=== PATIENT | female | born 1980 ===

== ENCOUNTER 2018-06-24 17:19 | Inpatient (IN) | payer BC, OTHER ==
[~2018-06-24] VITALS: Ht 160 cm; Wt 97.5 kg
--- NOTE | 2018-06-24 19:00 | NUR ---
PREADMISSION Pt 37 y/o female received in intake. Pt states came from [facility]. Pt is not intoxicated. Alert and oriented to name, place, and time. Perrla. Skin warm and moist to touch. Respirations even and unlabored. Bilateral hand tremors noted. Guarded. Observed staring at the ground mostly during assessment. C/o nausea with no vomit episode. C/o generalized body aches /. Pressured speech. Could not sit still. Very fidgety. Initial cows=14 ciwa=12. Explained unit rules to pt with acknowledgment. T=98.0 P=78 R=17 O2=98%@RA ES=066/62.
[2018-06-24 20:00] VITALS: BP 113/64
[2018-06-24] MEDS ORDERED: LORAZEPAM 2 MG/1 ML VIAL IM PRN (20:15)
[2018-06-24] MEDS ORDERED: BUPRENORPHINE HCL 2 MG TAB.SUBL SL PRN (20:15)
[2018-06-24] MEDS ORDERED: MAGNESIUM HYDROXIDE 30 ML LIQUID UDC PO PRN (20:15)
[2018-06-24] MEDS ORDERED: MAG HYDROX/AL HYDROX/SIMETH 30 ML LIQUID UDC PO PRN (20:15)
[2018-06-24] MEDS ORDERED: THIAMINE HCL 200 MG/2 ML VIAL IM ONE (20:15)
[2018-06-24] MEDS ORDERED: LOPERAMIDE HCL 2 MG CAPSULE PO PRN ×2 (20:15)
[2018-06-24] MEDS ORDERED: LORAZEPAM 1 MG TABLET PO PRN (20:15)
[2018-06-24] MEDS ORDERED: MIRALAX 17 GM POWD.PACK PO PRN (20:15)
[2018-06-24 20:31] LABS: BASOPHILS % (AUTO) 0.6 % (0.0-2.0); EOSINOPHILS # (AUTO) 0.2 K/uL (0.0-0.7); EOSINOPHILS % (AUTO) 1.9 % (0.0-7.0); HEMATOCRIT 37.7 % (31.2-41.9); HEMOGLOBIN 12.4 g/dL (10.9-14.3); LYMPHOCYTES # (AUTO) 3.9 K/uL (20.0-40.0); LYMPHOCYTES % (AUTO) 43.9 % (20.5-51.5); MEAN CORPUSCULAR HEMOGLOBIN 27.3 uug (24.7-32.8); MEAN CORPUSCULAR HGB CONC 33 g/dL (32.3-35.6); MONOCYTES # (AUTO) 0.7 K/uL (2.0-10.0); MONOCYTES % (AUTO) 7.9 % (0.0-11.0); NEUTROPHILS % (AUTO) 45.7 % (38.5-71.5); PLATELET COUNT (AUTO) 333 K/uL (179-408); RED BLOOD CELL COUNT(AUTO) 4.54 MIL/uL (3.63-4.92); WHITE BLOOD COUNT (AUTO) 8.8 K/uL (3.8-11.8)
[2018-06-24 20:35] LABS: ALANINE AMINOTRANSFERASE 43 U/L (14-59); ALKALINE PHOSPHATASE 120 U/L (50-136); AMYLASE 16 U/L (25-115); ASPARTATE AMINOTRANSFERASE 21 U/L (15-37); BILIRUBIN,TOTAL 0.2 mg/dL (0.2-1.0); CARBON DIOXIDE 24 mmol/L (21-32); CHLORIDE 107 mmol/L (98-107); CREATININE 0.9 mg/dL (0.6-1.3); GLUCOSE 122 mg/dL (74-106); LIPASE 66 U/L (73-393); MAGNESIUM 1.9 mg/dL (1.8-2.4); POTASSIUM 3.8 mmol/L (3.5-5.1); TOTAL PROTEIN, SERUM 7.3 g/dL (6.4-8.2); UREA NITROGEN, BLOOD 13 mg/dL (7-18)
[2018-06-24 20:42] LABS: ETHANOL < 3 MG/DL (0-0)
[2018-06-24 20:45] LABS: *URINE HCG, QUAL NEGATIVE (NEGATIVE)
--- NOTE | 2018-06-24 21:00 | NUR ---
ADMISSION NOTE Patient is a 37-year-old female admitted today 06/24/18 for medically supervised benzodiazepine (Xanax), ETOH (vodka & wine), and opiate (heroin) withdrawal; patient arrived on the unit at 1940. Patient was seen at intake by Familia Andujar RN, who performed a brief initial assessment and wrote the pre-admission note. Patient is currently experiencing the following withdrawal symptoms: anxiety, nausea, tremors, joint pain and body aches, chills and diaphoresis, tingling of her hands, arms, and legs, as well as the sensation of ants crawling all over me. Patient is alert and oriented x4, able to answer questions and follow commands. Patient appears disheveled and tired, anxious, worried, fearful, sad and depressed. Patient is ambulatory with a steady gait. Patient reports that common withdrawal symptoms include: "runny nose, body aches and joint aches, shaking, nausea and dry heaves, chills and sweats, decreased appetite, hot flashes, anxiety, restlessness, agitation." Patient states that due to having been diagnosed with epilepsy at age 16, she is not certain about having experience withdrawal-related seizures. She has been taking Topamax 50mg PO daily since onset of epilepsy, with her most recent seizure in January of 2018. Patient states she is uncertain if the seizure in January was related to ETOH withdrawal or her epilepsy. Patient denies any episodes of delirium but states that she had once instance of near overdose in 2011. Patient states that she was in [place] when she used heroin and spice together, resulting in shallow respirations and excessive vomiting. Patient states that Narcan was not necessary at that time. Patient reports several occasions where she would use and get high and experience blackouts and become forgetful. Per patient, none of her negative experiences required emergency interventions. Patient reports that her specific triggers include intense cravings that the she feels overcome by. Patient tearfully states, even right now Im craving so bad, I really want to use. Its so hard. Patient is tearful and depressed stating, Im so ashamed of myself. Even when I was getting treated at the [facility] I was sneaking things in. Skin and body check completed, no contraband found. Substance Abuse History: 1. Xanax 8-10mg PO every other day for the past 20 years. Patients last use was 06/24/18 at 0500 of 4mg. 2. Vodka 325mL PO daily (when available) for the past 6 years. Patients last intake of vodka was 06/22/18 at 0800 of 325mL. 3. Wine Patient reports drinking wine when nothing else is available. Occasional use of 750mL PO for the past 8 years. Patients last intake of wine was 06/23/18 at 0800 of 750mL. 4. Heroin 2-3 grams IV daily for that past 9 months. Last use was 06/20/18 in the afternoon of 1 gram. Patient started using heroin when she was [id number]. Patient has a history of Fentanyl use (IV, chew, & topical) for 10 years, however, due to financial strain, patient stopped using Fentanyl in September 2017 and switched back to IV heroin. Patient was recently at a treatment center where she was given Valium and Suboxone for approximately 3 days. Patient also smokes marijuana a couple times a week, each time smoking about one joint. Patient started using marijuana at age 18 and has been smoking cigarettes since the same time. Patient currently smokes about a pack a day. Patient states that she was encouraged to seek treatment today by, The fact that I want to keep pushing forward, I want to get better. When asked if she had an internal motivator, patient stated, My family and my dog; I have been very successful in the past. Patient feels that since she was able to achieve sobriety before, she will be able to achieve sobriety again. Her support system includes her parents and her cousins. When asked how she thought this admission might be different, patient answered, "I want to try talking to a new therapist for counseling. I've never had a therapist before. I think it will help." Patient reports struggling with insomnia, related to PTSD and the trauma of losing my fianc in a car accident in 2008. Patient states, I fall asleep okay, but its staying asleep thats hard. I have terrible night terrors that wake me up. Patient states that she used to take Prazosin for the night terrors, but started taking Ambien which she felt was more effective and eventually stopped taking the Prazosin on her own. Current living situation: "I was in sober living, but I also have a home in [place]." Patient states that she deals with stress by reading magazines, especially tabloids, and I like to do art. I even brought some supplies with me. Currently, patient does not hold a job but reports, I am 29 units shy of my bachelor's degree. I want to go back to school after this, for business." Patient reports attending several treatment centers over the past 7 months. In order starting with most recent: 1.) [facility], 1.[facility] days, June 22 & 2017, 2[facility] 3[facility], 2 weeks, 4.) [facility], 2 months (April-May,), 5.) [facility] [place], 25 days (December,). Prior to this year, patient states that she has been to 6 previous treatment centers. Patients longest period of sobriety was in 2015 for 10 months. When asked about family history of substance abuse, patient stated, "my dad is an alcoholic but no one else in my family has substance problems." Patient denies a history of SI/HI and denies current SI/HI. Patient states that she does not have a primary care physician, a psychologist or a psychiatrist. Patient reports that she is an organ donor, she has been attending AA meetings, and she has a temporary sponsor. Patient states that her past medical history includes anxiety, asthma, insomnia, PTSD, endometriosis, GERD, IBS, hypothyroidism, and epilepsy. She takes Topamax daily, along with levothyroxine, her maintenance inhaler (Advair), and pantoprazole. Patient is 54 and weighs 215lbs. per standing scale. Patients initial vital signs as follows: Temp: 98.0 F, HR 78, RR 17, O2 sat is 98% on RA, BP 103/62, pain 8/10 for generalized body aches and joint pain. Patients skin is intact, PERRLA, lung sounds clear bilaterally upon auscultation, abdomen soft and non-tender, bowel sounds present x4 quadrants. Patient states that her LMP was about 4 months ago although she denies using any form of control that might affect her menstruation. Patient states that her last BM was yesterday, 06/23/18. Initial COWS 14, CIWA 12. Patient has been oriented to the unit and has been provided with unit policies and protocols. Patient verbalized understanding to instructions. Patient is on fall and seizure precautions, safety measures in place, side rails up x2, bed locked in low position, call light within reach. SN to administer medications as ordered; will continue to monitor.
[2018-06-24 21:03] LABS: THYROID STIMULATING HORMONE 1.079 mIU/mL (0.358-3.740)
[2018-06-24 21:12] LABS: *AMPHETAMINE, URINE NEGATIVE (NEGATIVE); *BARBITURATE, URINE NEGATIVE (NEGATIVE); *CANNABINOID, URINE NEGATIVE (NEGATIVE); *COCCAINE, URINE NEGATIVE (NEGATIVE); *OPIATE, URINE NEGATIVE (NEGATIVE); *PHENCYCLIDINE SCREEN,URINE NEGATIVE (NEGATIVE)
[2018-06-24] MEDS ORDERED: FLUT1DIS28 IH (21:40)
[2018-06-24] MEDS ORDERED: TRAZ-214 PO (21:40)
[2018-06-24] MEDS ORDERED: FLUO15CR TP (21:40)
[2018-06-24] MEDS ORDERED: BACI3.5O23 OP (21:40)
[2018-06-24] MEDS ORDERED: FLUO40CA49 PO (21:40)
[2018-06-24] MEDS ORDERED: PANT40TA4 PO (21:40)
[2018-06-24] MEDS ORDERED: ZINC220C8 PO (21:40)
[2018-06-24] MEDS ORDERED: CLON0.1T PO (21:40)
[2018-06-24] MEDS ORDERED: DIPH-562 PO (21:40)
[2018-06-24] MEDS ORDERED: PROM25TA15 PO (21:40)
[2018-06-24] MEDS ORDERED: DOCU-141 PO (21:40)
[2018-06-24] MEDS ORDERED: MONT10TA25 PO (21:40)
[2018-06-24] MEDS ORDERED: LEVO50TA8 PO (21:40)
[2018-06-24] MEDS ORDERED: FLUT9.9S NS (21:40)
[2018-06-24] MEDS ORDERED: DIPH28.33 TP (21:40)
[2018-06-24] MEDS ORDERED: TOPI50TA24 PO (21:40)
[2018-06-24] MEDS ORDERED: ALBU18HF2 IH (21:40)
[2018-06-24] MEDS ORDERED: GABA600T2 PO (21:40)
[2018-06-24] MEDS ORDERED: [UNRECOGNIZED DRUG - CODE] PO (21:40)
[2018-06-24] MEDS ORDERED: DEXT15DR6 OP (21:40)
[2018-06-24] MEDS ORDERED: BUSP10TA3 PO (21:40)
--- NOTE | 2018-06-24 22:00 | NUR ---
COWS 18, CIWA 22 Patient currently has a COWS score of 18 and a CIWA of 22. Patient reports nausea, anxiety, agitation, "tingling" and "skin crawling" describing sensations of "ants crawling all over my body and stinging me." SN to administer medications as ordered. Will continue to monitor.
[2018-06-24] MEDS: LORAZEPAM 1 MG TABLET PO PRN (22:07)
[2018-06-24] MEDS: PROMETHAZINE HCL 25 MG TABLET PO PRN (22:07)
--- NOTE | 2018-06-24 22:07 | NUR ---
PRN ATIVAN, SUBUTEX, & PHENERGAN Patient given PRN Ativan 2mg for CIWA of 22 and PRN Subutex 4mg SL for COWS of 18. Patient given PRN Phenergan 25mg for nausea. Safety measures in place, side rails up x2, bed locked in low position, call light within reach. Will monitor for effectiveness.
--- NOTE | 2018-06-24 22:37 | NUR ---
PRN SUBUTEX REASSESSMENT Upon reassessment, patient has a COWS score of 15 (previously 16). PRN Subutex mildly effective. Safety measures in place, side rails up x2, bed locked in low position, call light within reach. Will continue to monitor.
--- NOTE | 2018-06-24 23:07 | NUR ---
PRN ATIVAN & PHENERGAN REASSESSMENT Patient reports nausea has improved. PRN Phenergan noted to be effective. Upon reassessment, patient has a CIWA score of 20 (previously 22). PRN Ativan noted to be mildly effective. Safety measures in place, side rails up x2, bed locked in low position, call light within reach. Will continue to monitor.
[2018-06-25] VITALS (7 sets, daily range): BP systolic 49–122; BP diastolic 48–80
--- NOTE | 2018-06-25 | NUR ---
COWS 16, CIWA 20 Patient has a current COWS of 16 and a current CIWA of 20. Scores reflect intermittent nausea, anxiety, agitation, chills and sweats, "skin crawling," and headache. SN to administer medications as ordered. Will continue to monitor.
[2018-06-25] MEDS: LORAZEPAM 1 MG TABLET PO PRN (00:17)
[2018-06-25] MEDS: diphenhydrAMINE 50 MG CAPSULE PO PRN (00:17)
--- NOTE | 2018-06-25 00:17 | NUR ---
PRN ATIVAN & BENADRYL Patient reports difficulty sleeping and is requesting sleep aid. PRN Benadryl 50mg given PO. Per PRN Ativan order of CIWA greater or equal to 16, patient was given Ativan 2mg PO. Safety measures in place, side rails up x2, bed locked in low position, call light within reach. Will monitor for effectiveness.
[2018-06-25] MEDS: IBUPROFEN 600 MG TABLET PO PRN (00:20)
--- NOTE | 2018-06-25 00:20 | NUR ---
PRN MOTRIN Patient reports headache, 5/10 on pain scale. PRN Motrin 600mg given PO. Safety measures in place, call light within reach. Will monitor for effectiveness.
--- NOTE | 2018-06-25 01:17 | NUR ---
PRN ATIVAN & BENADRYL REASSESSMENT Patient has a current CIWA of 17; PRN Ativan noted to be effective. Patient reports feeling only a little sleepy; PRN Benadryl only mildly effective at this time. Safety measures in place, side rails up x2, bed locked in low position, call light within reach. Will continue to monitor.
--- NOTE | 2018-06-25 01:20 | NUR ---
PRN MOTRIN REASSESSMENT Patient reports that headache has improved; PRN Motrin noted to be effective. Safety measures in place, call light within reach. Will continue to monitor.
[2018-06-25] MEDS ORDERED: [UNRECOGNIZED DRUG - OTHER] (03:52)
[2018-06-25] MEDS ORDERED: NAPH15DR8 OP (03:52)
--- NOTE | 2018-06-25 04:00 | NUR ---
COWS & CIWA DEFERRED COWS and CIWA deferred at this time due to patient sleeping; to be assessed and scored while patient is awake, per protocol. Respirations are even and unlabored. Safety measures in place, side rails up x2, bed locked in low position, call light within reach. Will continue to monitor.
[2018-06-25] MEDS: PROMETHAZINE HCL 25 MG TABLET PO PRN ×3 (07:08→20:24)
--- NOTE | 2018-06-25 07:08 | NUR ---
PRN PHENERGAN Patient reports nausea. PRN Phenergan given PO. Safety measures in place, side rails up x2, bed locked in low position, call light within reach. Will endorse to day shift.
--- NOTE | 2018-06-25 07:25 | NUR ---
END OF SHIFT Patient is a 37-year-old female admitted yesterday, 06/24/18 for benzo, ETOH, and opiate withdrawal. Patient is scheduled to start a 5-day Phenobarbital taper and 5-day Subutex taper today. Patients last COWS was 16 and last CIWA was 17. Patient received the following PRN medications: Ativan 2mg PO x2, Subutex 4mg SL, Phenergan 25mg PO, Benadryl 50mg, and Motrin 600mg. The PRN medications were noted to be effective in reducing patients COWS and CIWA scores. Patient slept for 5 hours, total intake of 1,210mL, void x1, stool x0. Another PRN Phenergan 25mg was given at 0708 for complaint of nausea, no emesis. Patient is on fall and seizure precautions, with seizure history related to epilepsy, most recent seizure in January,. Safety measures in place, side rails up x2, bed locked in low position, call light within reach. Will endorse to day shift.
--- NOTE | 2018-06-25 07:30 | NUR ---
START OF SHIFT Pt 37 y/o female admitted for medically supervised bzo, etoh, and opiate withdrawal. Received in room on bed with eyes closed resting, but easily arousable to name. Perrla. Skin warm and moist to touch. Respirations even and unlabored. Bilateral hand tremors noted. Appears disheveled and unkempt. Hair uncombed. States is anxious. Fidgety. Complaints of "skin crawling". Complaints of chills/ sweats. Body aches. Generalized discomfort. Encouraged to maintain hygiene. Empty drink bottles scattered throughout the room. I was reported that pt slept for 5 hours last night. Last cows=16 ciwa=17 reported at 1999. Pt is on a 5 day subutex taper and 5 day phenobarbital taper and is on day 1 for both tapers. Bed on lowest position with side rails x2 up for safety. Call light within reach.
--- NOTE | 2018-06-25 08:00 | NUR ---
COWS AND CIWA ASSESSMENT cows=14 ciwa=14. Anxious. Irritable. Complaints of nausea with no vomit episode. Bilateral hand tremors noted. Complaints of intermittent chills/ sweats. Complaints of generalized body aches. Complaints of generalized discomfort.
[2018-06-25] MEDS: MULTIVITAMINS,THERAPEUTIC TABLET PO SCH (09:00)
[2018-06-25] MEDS: THIAMINE HCL 100 MG TABLET PO SCH (09:00)
[2018-06-25] MEDS ORDERED: TUBERCULIN,PURIF.PROT.DERIV. 5 TU/0.1 ML TEST ID ONE (09:00)
[2018-06-25] MEDS ORDERED: 5 DAY TAPER BUPRENORPHINE -SERENITY PROTOCOL SL PRN (09:00)
[2018-06-25] MEDS ORDERED: 6 DAY PHENOBARBITAL TAPER -SERENITY PROTOCOL PO PRN (09:00)
[2018-06-25] MEDS: PHENOBARBITAL 60 MG TABLET PO SCH ×3 (10:12→20:24)
[2018-06-25] MEDS: FOLIC ACID 1 MG TABLET PO SCH (10:12)
[2018-06-25] MEDS: BUPRENORPHINE HCL 2 MG TAB.SUBL SL SCH ×4 (10:13→20:23)
[2018-06-25] MEDS ORDERED: MONTELUKAST SODIUM 10 MG TABLET PO PRN (10:45)
[2018-06-25] MEDS ORDERED: ALBUTEROL SULFATE 8 GM HFA.AER.AD IH PRN (10:45)
[2018-06-25] MEDS: DICYCLOMINE HCL 20 MG TABLET PO PRN ×2 (11:35→20:23)
--- NOTE | 2018-06-25 11:40 | NUR ---
PHENARGAN MAALOX BENTYL PRN Unwitnessed vomit episode x1. Observed dry heaving. phenergan po prn per MD order given and tolerated well. Complaints of stomach cramps. Bnetyl po prn per MD order given and tolerated well. Complaints of heart burn. Maloox po prn prn per MD order given and tolerated well.
[2018-06-25] MEDS ORDERED: ALBUTEROL SULFATE 2.5 MG/3 ML NEBU NEB PRN (11:45)
--- NOTE | 2018-06-25 12:00 | NUR ---
COWS ASSESSMENT cows=15. Bilateral hand tremors noted. Anxious and restless .Not able to lay still. Pressured speech. Complaints of nausea/ vomit. Complaints of generalized body pain. Generalize discomfort. Addendum: 06/25/18 at 1725 by SUZANNA ROMERO RN additional info and ciwa=15
--- NOTE | 2018-06-25 12:40 | NUR ---
PRN PHENERGAN MALOOX BENTYL PRN Pt denies nausea or vomit at this time. Pt denies stomach cramps at this time. Pt denies heartbur at this time.
[2018-06-25] MEDS: FLUOXETINE HCL 20 MG CAPSULE PO SCH (13:02)
--- NOTE | 2018-06-25 16:00 | NUR ---
COWS AND CIWA ASSESSMENT cows=13 ciwa=13. Bilateral hand tremors noted. Anxious and restless. Irritable. Pressured speech. Complaints of chills/ sweats, body aches, nausea, and generalized discomfort.
[2018-06-25] MEDS: HYDROXYZINE PAMOATE 25 MG CAPSULE PO PRN (16:05)
[2018-06-25] MEDS: PANTOPRAZOLE SODIUM 40 MG TABLET.DR PO SCH (16:05)
--- NOTE | 2018-06-25 16:11 | NUR ---
PRN VISTARIL Tearful and crying. Vistaril po prn per MD order given and tolerated well.
--- NOTE | 2018-06-25 17:11 | NUR ---
PRN VISTARIL EVAL pt states vistaril effective.
--- NOTE | 2018-06-25 18:48 | NUR ---
END OF SHIFT Pt 37 y/o female admitted for medically supervised bzo, etoh, and opiate withdrawal. Alert and oriented to name, place, and time. Perrla. Skin warm and moist to touch. Respirations even and unlabored. Bilateral hand tremors noted. Appears disheveled and unkempt. Hair uncombed. Irritable. Anxious. Complaints of body aches and nausea throughout the day. Pressured speech noted. Clothes and empty drink bottles scattered throughout the room. Encouraged to maintain hygiene. Isolative to room throughout the day with minimal peer interaction. Low motivation for self care. Was seen by MD today. Medication compliant. Pt is on a 5 day Phenobarbital taper and is on day 1. Pt also on a 5 day subutex taper and is on day 1. Last cows= 13ciwa= 13@1600. Pt received bentyl po prn per MD order for stomach cramps, maloox po prn per MD order for heartburn, and Phenergan po prn per MD order for nausea and 1 vomit episode today. Bed on lowest position with side rails x2. Call light within reach.
--- NOTE | 2018-06-25 19:50 | NUR ---
Start of Shift Note Received 37 y/o female px, admitted for medically supervised withdrawal from ETOH, benzos and opiates. Px was placed on 5 day Phenobarbital and 5 day Subutex taper started today, 06/25/2018. Last reported COWS 13 and CIWA 13. During the rounds at 1950, px is awake on bed in fowlers position, watching TV. Snacks and unfinished drinks noted on top of the bed side table and top of the shelves. Px appears anxious and depressed. Px is suspicious, with blunt affect and emotional volatility. Px stated that she has 7/10 anxiety, 7/10 body aches, pins/needles sensation on right leg and arms, flush feeling, stuffy nose, stomach cramps, nausea and moderate bilateral hand tremors are also noted. Bed on lowest position, side rails up 2x and call light within reach. Well continue to monitor.
--- NOTE | 2018-06-25 20:00 | NUR ---
COWS 13 and CIWA 15 Px appears anxious and depressed. Px is suspicious, with blunt affect and emotional volatility. Px has 7/10 anxiety, 7/10 body aches, pins/needles sensation on right leg and arms, flush feeling, stuffy nose, stomach cramps, nausea and moderate bilateral hand tremors are also noted. IL= 66. Well continue to monitor.
[2018-06-25] MEDS: TRAZODONE 100 MG TABLET PO SCH (20:23)
[2018-06-25] MEDS: TOPIRAMATE 25 MG TABLET PO SCH (20:24)
--- NOTE | 2018-06-25 20:24 | NUR ---
PRN medications Px received Bentyl 20 mg PO for stomach cramps and Phenergan 25 mg PO for nausea. To reassess after an hour.
--- NOTE | 2018-06-25 20:55 | NUR ---
COWS 13 reassessment Px still appears anxious and depressed. Px is suspicious, with blunt affect and emotional volatility. Px stated that she feels the same, she has 7/10 anxiety, 7/10 body aches, pins/needles sensation on right leg and arms, flush feeling, stuffy nose, stomach cramps, moderate bilateral hand tremors are also noted. She was given Phenergan 25 mg Po and Bentyl 20 mg PO a while ago. DC= 69. Well continue to monitor.
--- NOTE | 2018-06-25 21:25 | NUR ---
Reassessment of stomach cramps and nausea Px stated that her stomach cramps improves and her nausea improved a little after an hour of administration of Bentyl 20 mg PO and Phenergan 25 mg PO.
--- NOTE | 2018-06-25 21:25 | NUR ---
CIWA 15 reassessment Px still appears anxious and depressed. Px is suspicious, with blunt affect and emotional volatility. Px stated that she still feels the same even her stomach cramps and nausea improved a little bit. She has 7/10 anxiety, 7/10 body aches, pins/needles sensation on right leg and arms, flush feeling, stuffy nose, and moderate bilateral hand tremors are also noted. CO= 64. Well continue to monitor.
[2018-06-26] VITALS (8 sets, daily range): BP systolic 86–151; BP diastolic 42–79
--- NOTE | 2018-06-26 04:00 | NUR ---
COWS and CIWA deferred COWS and CIWA deferred at 0000 and 0400 due to the px is asleep, to assess if the px is awake per doctor's order. We'll continue to monitor.
[2018-06-26] MEDS: LEVOTHYROXINE SODIUM 50 MCG TABLET PO SCH (07:01)
--- NOTE | 2018-06-26 07:05 | NUR ---
End of Shift Note During the shift at 2023, px received Bentyl 20 mg PO for stomach cramps and Phenergan 25 mg PO for nausea. They were a bit effective as stated by the px. Px oral intake 1500 ml, voided 3x, No BM. At 0630, px is asleep on bed in right side lying position. Last COWS 13 and CIWA 15. Bed on lowest position, side rails up 2x and call light within reach. Px endorsed top AM shift nurse. Well continue to monitor.
--- NOTE | 2018-06-26 07:20 | NUR ---
Start Of Shift: patient is a 37 yr old female who was admitted to [facility] on 06/24/18 for a medically supervised withdrawal from Alcohol ( Wine, and Vodka), Benzodiazepines ( Xanax) and Opiates ( Fentanyl, heroin and Suboxone), she has been placed on a 5 day Subutex and 5 day Phenobarbital taper and this is day 2. She is asleep in bed at this time, breathing even and unlabored and snoring lightly. PRN medications given on PM shift: Bentyl and Phenergan , she slept for 8 hours and last COWS was 13 and CIWA 15. Continue to follow MD plan of care and offer support as needed.
--- NOTE | 2018-06-26 09:00 | NUR ---
PRN Phenergan 25 MG PO given for nausea Bentyl 20 MG PO given for stomach spasms
--- NOTE | 2018-06-26 09:00 | NUR ---
COWS 12 CIWA 15 Withdrawal symptoms present as stuffy nose, nausea, lethargy, stomach pains, bilateral hand tremors, increased anxiety and irritability. Phenergan 25 MG PO given for nausea Bentyl 20 MG PO given for stomach spasms scheduled 30 MG Po Phenobarbital and Subutex 4 MG SL given.
[2018-06-26] MEDS: FLUOXETINE HCL 20 MG CAPSULE PO SCH (09:17)
[2018-06-26] MEDS: MULTIVITAMINS,THERAPEUTIC TABLET PO SCH (09:17)
[2018-06-26] MEDS: FOLIC ACID 1 MG TABLET PO SCH (09:17)
[2018-06-26] MEDS: THIAMINE HCL 100 MG TABLET PO SCH (09:17)
[2018-06-26] MEDS: PANTOPRAZOLE SODIUM 40 MG TABLET.DR PO SCH ×2 (09:17→16:29)
[2018-06-26] MEDS: TOPIRAMATE 25 MG TABLET PO SCH ×2 (09:17→21:19)
[2018-06-26] MEDS: BUPRENORPHINE HCL 2 MG TAB.SUBL SL SCH ×3 (09:18→21:20)
[2018-06-26] MEDS: DICYCLOMINE HCL 20 MG TABLET PO PRN (09:18)
[2018-06-26] MEDS: PROMETHAZINE HCL 25 MG TABLET PO PRN ×2 (09:18→14:31)
[2018-06-26] MEDS: PHENOBARBITAL 60 MG TABLET PO SCH ×4 (09:18→21:20)
--- NOTE | 2018-06-26 10:00 | NUR ---
PRN Reassess Patient states that phenergan 25MG PO was effective for nausea and Bentyl 20 MG Po was effective for stomach spasms Patient is sitting up in bed eating breakfast
[2018-06-26 11:06] LABS: HEPATITIS B SURFACE AG Negative (Negative)
--- NOTE | 2018-06-26 12:30 | NUR ---
COWS 16 CIWA 21 Patient presents with chills/diaphoresis, increased anxiety, irritability, emotionally volatile, mood swings, aching bones, constant nausea, constipation and stomach spasms. Scheduled 30 MG PO Pheno given PRN Clonidine, Vistaril, Tylenol, Motrin, Robaxin and MOM given
[2018-06-26] MEDS: ACETAMINOPHEN 325 MG TABLET PO PRN (12:49)
[2018-06-26] MEDS: METHOCARBAMOL 750 MG TABLET PO PRN (12:49)
[2018-06-26] MEDS: IBUPROFEN 600 MG TABLET PO PRN (12:49)
[2018-06-26] MEDS: HYDROXYZINE PAMOATE 25 MG CAPSULE PO PRN (12:49)
[2018-06-26] MEDS: CLONIDINE HCL 0.1 MG TABLET PO PRN (12:50)
--- NOTE | 2018-06-26 12:50 | NUR ---
PRN medications Motrin 600MG PO and Tylenol 650 MG PO given for toothache / pain MOM given for C/O no BMx5 days Clonidine 0.1 MG PO and Vistaril 25 MG PO given for increased anxiety and irritability Robaxin 750 MG PO given for C/O body aches Patient is weepy and has a sad flat affect, will monitor closely and offer support
--- NOTE | 2018-06-26 13:50 | NUR ---
PRN Reassess Patient states medications were effective, tooth pain reduced to 2/10 Anxiety has decreased and muscle aches have decreased will continue to monitor
--- NOTE | 2018-06-26 14:30 | NUR ---
PRN Phenergan Phenergan 25 MG PO given for reports of nausea Will continue to monitor
--- NOTE | 2018-06-26 16:30 | NUR ---
COWS 14 CIWA 18 withdrawal symptoms present as pins and needles in hands and feet, feeling of ants crawling over skin, increased anxiety, emotionally volatile, tearful,lethargy and decreased appetite and nausea. PRN medications given this afternoon: Clonidine, Vistaril, Motrin, Tylenol, Robaxin, MOM and Phenergan.
--- NOTE | 2018-06-26 17:55 | NUR ---
Assisted Fall Patient came to nurses station after having a long shower, as nurse approached she stated " I don't feel well ", patients legs began to bend and this nurse assisted patient to sit on floor, patient was hyperventilating and shaking, after 5 mins patient was helped into wheelchair and placed back in bed, VS taken BP 151/75, HR 94, RR 24, O2 98 %, T 98.5 Patient states she feels like she is having a panic attack, MD notified and orders for Ativan 2 MG PO obtained. Will continue to monitor closely, 1:[address] at bedside for patient safety.
[2018-06-26] MEDS ORDERED: LORAZEPAM 1 MG TABLET PO ONE (18:15)
--- NOTE | 2018-06-26 19:14 | NUR ---
End Of Shift: Patient is a 37 yr old female who was admitted to [facility] on 06/24/18 for a medically supervised withdrawal from ETOH, benzodiazepines, and Opiates. She is on a 5 day Phenobarbital and 5 day Subutex taper and this is day 2. Today she has been emotionally volatile, weepy, lethargic, nauseous, complains of pins and needles in hands and feet, feeling of bugs crawling over her skin, decreased appetite, increased anxiety and agitation. She had an episode at 1755 after coming out of shower where she felt faint while talking to this nurse, her knees buckled and I assisted her to sitting on floor, she was hyperventilating and shaking, after a few minutes she was wheeled back to bed, VS stable, order from MD for Ativan 2MG PO x1. PRN medications given this shift : Ativan 2MG, Bentyl, Phenergan x2, Clonidine, Robaxin, Vistaril, Motrin and Tylenol. She had a fluid intake of 1800 ML, 3 Voids and 0 BM, her last COWS was 14 @ 1600 and CIWA 20 @ 1800. Patient has confided twice today that her cravings are so bad and she really wants to use and she thinks that is why she had a near panic attack at 1800. Reassured patient that she is safe here and that sobriety is worth it. Continue to follow MD plan of care and offer support as needed. Endorsed to restaurant shift supervisor
--- NOTE | 2018-06-26 19:30 | NUR ---
START OF SHIFT Pt is a 37 yr old female who was admitted for a medically supervised withdrawal from ETOH, benzodiazepines, and Opiates.Pt continues on a 5 day Phenobarbital and 5 day Subutex taper and is tolerating well. Per endorsement, Pt had an episode at 1755 after coming out of shower where she felt faint and was assisted to sitting on floor, she was hyperventilating and shaking, after a few minutes she was wheeled back to bed, VS stable. One time dose for Ativan 2MG PO was given and was effective. PRN medications given during the day shift : Ativan 2MG, Bentyl, Phenergan x2, Clonidine, Robaxin, Vistaril, Motrin and Tylenol. Last COWS 14 @ 1600 and CIWA 20 @ 1800.Pt has been placed on 1:1 close observation with a female staff for safety. Received in room. A/A/O X 4. Pt stated that she is feeling better now; encouraged to verbalize needs and concerns; emotional support provided.Denies any c/o pain or discomfort, focused on going to smoke.Pt encouraged to use wheel chair for safety. Safety measures in place. Call light within reach. Will continue to monitor.
--- NOTE | 2018-06-26 20:00 | NUR ---
COWS 10 CIWA 10 Pt is resting comfortably in bed,minimizing withdrawal symptoms, presents with increased anxiety, emotionally unstable,lethargic with decreased appetite,no c/o nausea noted.PRN medications offered but she declined,stated she will take routine meds at bed time.
[2018-06-26] MEDS: TRAZODONE 100 MG TABLET PO SCH (21:19)
[2018-06-27] VITALS: BP 123/76
--- NOTE | 2018-06-27 | NUR ---
COWS 10 CIWA 10 Pt is anxious,restless,lethargic,sleeping on and off,unable to sleep comfortably,constantly turning in bed.PRN medications offered but she declined; stated she will try to sleep;will continue to monitor.
[2018-06-27] MEDS: diphenhydrAMINE 50 MG CAPSULE PO PRN ×2 (00:42→23:07)
[2018-06-27] MEDS: IBUPROFEN 600 MG TABLET PO PRN ×2 (00:42→23:07)
[2018-06-27] MEDS: METHOCARBAMOL 750 MG TABLET PO PRN (00:42)
--- NOTE | 2018-06-27 00:42 | NUR ---
PRN MEDS Pt c/o headache,muscle aches/pain and insomnia.PRN Motrin 600mg PO,Robaxin 750 mg PO and Benadryl 50 mg PO given as oredered respectively;will monitor for effectiveness.
[2018-06-27 04:00] VITALS: BP 121/69
--- NOTE | 2018-06-27 04:00 | NUR ---
COWS and CIWA deferred COWS and CIWA deferred due to pt being asleep;pt is sleeping in bed,breathing is even and non labored,v/s are stable, no s/s of distress noted,will continue to monitor.
--- NOTE | 2018-06-27 06:47 | NUR ---
END OF SHIFT Pt is a 37 yr old female who was admitted for a medically supervised withdrawal from ETOH, benzodiazepines, and Opiates.Pt continues on a 5 day Phenobarbital and 5 day Subutex taper and is tolerating well. Pt has been placed on 1:1 close observation with a female staff for safety due to an episode of fainting yesterday. No further incident noted. Pt is A/O X 4. Last COWS / CIWA = 10 as of midnight. Pt received PRN Motrin,Robaxin and Benadryl last night and it was effective.She slept 6 hrs,fluid intake was 1960 mls,voided x 3, no BM. Safety measures in place. Call light within reach. Will continue to monitor.
[2018-06-27] MEDS: LEVOTHYROXINE SODIUM 50 MCG TABLET PO SCH (06:54)
--- NOTE | 2018-06-27 07:30 | NUR ---
Start of Shift Notes: Report received from manager night nurse. Pt is a 37F, admitted for Benzo, ETOH, and Opiate withdrawal. Per manager night nurse, pts last COWS was 10, CIWA was 10, and pt slept for 6 hours. Pt continues on Subutex and Phenobarbital taper to manage withdrawal symptoms. Upon start of shift, pt was in bed with eyes closed. Pt being observed by 1:1 sitter for safety. Pt had a fall episode yesterday. Pt arousable to name. During assessment, Pt is AOx4. Pt stated Im okay, I just feel tired and want to go back to sleep. Educated pt about plan of care for the day. Pt agreed to go to group activity if she can during the day. Bed in lowest position. Side rails up x2. Call light functioning and within reach. All needs attended and met.
[2018-06-27 08:00] VITALS: BP 109/66
--- NOTE | 2018-06-27 08:00 | NUR ---
COWS and CIWA COWS 11 CIWA 11, pt exhibits observable sweat, aching joints, stomach cramps, slight tremors, moderate anxiety and agitation.
[2018-06-27] MEDS ORDERED: BUPRENORPHINE HCL 2 MG TAB.SUBL SL SCH (09:00)
[2018-06-27] MEDS: MULTIVITAMINS,THERAPEUTIC TABLET PO SCH (09:00)
[2018-06-27] MEDS: FOLIC ACID 1 MG TABLET PO SCH (09:36)
[2018-06-27] MEDS: TOPIRAMATE 25 MG TABLET PO SCH ×2 (09:36→21:23)
[2018-06-27] MEDS: PANTOPRAZOLE SODIUM 40 MG TABLET.DR PO SCH ×2 (09:37→17:41)
[2018-06-27] MEDS: FLUOXETINE HCL 20 MG CAPSULE PO SCH (09:37)
[2018-06-27] MEDS: PHENOBARBITAL 60 MG TABLET PO SCH ×3 (09:38→21:22)
[2018-06-27] MEDS: THIAMINE HCL 100 MG TABLET PO SCH (09:38)
[2018-06-27 12:00] VITALS: BP 109/67
--- NOTE | 2018-06-27 12:00 | NUR ---
COWS and CIWA COWS 11 CIWA 10, pt with observable sweat, stomach cramps, slight tremors, moderate anxiety and agitation.
[2018-06-27] MEDS: CLONIDINE HCL 0.1 MG TABLET PO PRN ×2 (14:53→23:08)
[2018-06-27] MEDS: BUPRENORPHINE HCL 2 MG TAB.SUBL SL SCH ×2 (14:54→21:22)
[2018-06-27] MEDS: PROMETHAZINE HCL 25 MG TABLET PO PRN ×2 (15:00→23:07)
--- NOTE | 2018-06-27 15:00 | NUR ---
Phenergan and Clonidine PRN: Pt c/o nausea. No vomiting episodes. Pt educated about snack intake. 25mg Phenergan PO PRN given as ordered. Pt also c/o anxiety. Pt stated Clonidine has worked for her anxiety previously. BP 114/67. 0.1mg Clonidine PO PRN given as ordered. Will continue to monitor.
--- NOTE | 2018-06-27 15:15 | NUR ---
MD Communication: Pt c/o tooth pain 06/17. Pt said she plans on getting a root canal for her left molar. Pt requested Toradol IM as it has worked for her before. MD made aware with new order for 30mg Toradol IM [id number]. Pt stated that she'll ask for the medication when she can't take the pain anymore or before she goes to sleep. Order noted.
[2018-06-27 16:00] VITALS: BP 105/57
--- NOTE | 2018-06-27 16:00 | NUR ---
COWS and CIWA COWS 11 CIWA 12, pt with some sweat, slight aching joints, stomach cramps, some tremors, moderate anxiety and agitation.
--- NOTE | 2018-06-27 19:36 | NUR ---
End of Shift Note: Report given to building repair maintenance supervisor nurse. Pt is currently on 1:1 for safety. Last CIWA was 12 at 1600. Pt had anxiety during shift. Clonidine PRN given as ordered. Pt also c/o tooth pain and requested for Toradol. New order for Toradol noted. Pt stated shell take Toradol before she goes to sleep. Bed in lowest position. Side rails up x2. Call light functioning and within reach. All needs attended and met.
--- NOTE | 2018-06-27 19:40 | NUR ---
START OF SHIFT Pt is a 37 yr old female who was admitted for a medically supervised withdrawal from ETOH, benzodiazepines, and Opiates.Pt continues on a 5 day Phenobarbital and 5 day Subutex taper and is tolerating well. Pt continues on 1:1 close observation with a female staff for safety. Pt received sleeping in bed in her room.Arousable on approach but went back to sleep.Pt is A/O X 4.Per report,Pt has been in bed,sleeping on and off all day long,up for smoke break only.Room is scattered with unfinished food items and soda bottles,Pt does not want it cleared up said she is going to eat.Physical appearance is dishevelled and unkempt. Pt encouraged to verbalize needs and concerns; emotional support provided.Last COWS=11 and CIWA=12. Pt received PRN Phenergan and Clonidine during the day and it was effective.No s/s of distress noted. Safety measures in place. Call light within reach. Will continue to monitor.
[2018-06-27 20:00] VITALS: BP 105/60
[2018-06-27] MEDS: TRAZODONE 100 MG TABLET PO SCH (21:22)
--- NOTE | 2018-06-27 21:30 | NUR ---
MED PASS During med pass,this freelance writer had to cut her Phenobarbital 60 mg pill in half to give her the prescribed dose of 30 mg and accidently dropped ( to be wasted ) 1/2 pill on the floor,which was going to be picked up and wasted after med pass.Pt saw that pill and got up to go to the BR,she stepped on the pill on the floor and dragged it to the bathroom with her feet.When confronted,she denied,however the pill was taken away from her and she was disciplined.
[2018-06-27] MEDS: ACETAMINOPHEN 325 MG TABLET PO PRN (23:07)
--- NOTE | 2018-06-27 23:08 | NUR ---
PRN MEDS Pt c/o having nausea and anxiety,said that she had taken Phenergan and Clonidine in the day time and it was helpful,requesting for the same.Phenergan and Clonidine given as ordered,B/P=137/75.Pt also C/O INSOMNIA AND TOOTHACHE 05/17.PRN Benadryl,Tylenol and Motrin given as ordered,respectively;will monitor for effectiveness.
[2018-06-28] VITALS: BP 135/77
--- NOTE | 2018-06-28 00:08 | NUR ---
PRN F/U; COWS/ CIWA DEFERRED Pt is calm and resting in bed with eyes closed,breathing is even and non labored,no s/s of distress noted, COWS/CIWA deferred d/t Pt being asleep,all safety measures in place,sitter is at bedside,will continue to monitor for safety.
--- NOTE | 2018-06-28 04:00 | NUR ---
COWS and CIWA deferred COWS and CIWA deferred due to pt being asleep;pt is sleeping in bed,breathing is even and non labored,v/s refused, no s/s of distress noted,will continue to monitor.
--- NOTE | 2018-06-28 06:55 | NUR ---
END OF SHIFT Pt is a 37 yr old female who was admitted for a medically supervised withdrawal from ETOH, benzodiazepines, and Opiates.Pt continues on a 5 day Phenobarbital and 5 day Subutex taper and is tolerating well. Pt continues on 1:1 close observation with a female staff for safety. No further incident noted. Pt is A/O X 4. Last COWS = 10; CIWA =12. Pt received PRN Motrin,Tylenol,Clonidine,Phenergan and Benadryl last night and were effective.She slept 9 hrs,fluid intake was 910 mls,voided x 1, no BM. Pt remains dishevelled and unkempt with poor ADL'S.Safety measures in place. Call light within reach. Will continue to monitor.
[2018-06-28] MEDS: LEVOTHYROXINE SODIUM 50 MCG TABLET PO SCH (07:19)
--- NOTE | 2018-06-28 07:40 | NUR ---
Start of Shift Pt is a 37 y/o F admittd on 06/24/18 for medically supervised ETOH, benzo and opiate withdrawal. Pt continues on a 5 day phenobarbital and subutex taper and tolerating well. Received pt laying in bed sleeping and has a disheveled appearance; 1:1 sitter at bedside for safety. Respirations even and unlabored. Multipe drink bottles and snack wrappers and clothes scattered around the room. Last cows 10 and ciwa 12; pt slept 9 hrs. Side rails upx2, bed in lowest position, and call light is within reach. Safety measures in place. Will continue to monitor.
[2018-06-28 09:55] VITALS: BP 109/68
[2018-06-28] MEDS: THIAMINE HCL 100 MG TABLET PO SCH (10:00)
[2018-06-28] MEDS: PANTOPRAZOLE SODIUM 40 MG TABLET.DR PO SCH ×2 (10:00→17:00)
[2018-06-28] MEDS: FOLIC ACID 1 MG TABLET PO SCH (10:00)
[2018-06-28] MEDS: PHENOBARBITAL 60 MG TABLET PO SCH ×2 (10:00→22:10)
[2018-06-28] MEDS: FLUOXETINE HCL 20 MG CAPSULE PO SCH (10:00)
[2018-06-28] MEDS: MULTIVITAMINS,THERAPEUTIC TABLET PO SCH (10:00)
[2018-06-28] MEDS: BUPRENORPHINE HCL 2 MG TAB.SUBL SL SCH ×3 (10:01→22:14)
[2018-06-28] MEDS: TOPIRAMATE 25 MG TABLET PO SCH ×2 (10:01→22:13)
[2018-06-28] MEDS: PROMETHAZINE HCL 25 MG TABLET PO PRN ×2 (10:21→22:13)
--- NOTE | 2018-06-28 10:21 | NUR ---
PRN Phenergan 25 mg po prn given for nausea. Pt stated she had a sudden wave of nausea after getting up and going to the bathroom. Will monitor and reassess.
--- NOTE | 2018-06-28 10:53 | NUR ---
COWS 15 and CIILIR 15 Received pt laying in bed, just had awaken and still drowsy. Pt has a disheveled appearance; 1:1 sitter at bedside for safety. Respirations even and unlabored. Multiple drink bottles, empty snack wrappers and clothes scattered around the room. Pt has a flat affect, anxious mood, fidgety, enlarged pupils, goosebumps, chills, sweating, tremors, nausea, pins and needle sensation on her neck, shoulder and legs, generalized body aches, anxiety and agitation, and restless legs. Scheduled meds to be given. Safety measures in place. 1:1 sitter at bedside. Will continue to monitor. Addendum: 06/28/18 at 1343 by LAKISHA SINGH RN Correct time is 0953
--- NOTE | 2018-06-28 11:21 | NUR ---
Reassessment Pt is laying in bed with eyes closed, sleeping. Respirations even and unlabored. 1:1 sitter by bedside. Will continue to monitor.
[2018-06-28 12:00] VITALS: BP 103/62
--- NOTE | 2018-06-28 12:40 | NUR ---
MD Communication Okay per MD to remove 1:1 sitter. Pt was educated on use of the call light and to get up slowly from lying and/or sitting. She verbalized understanding.
--- NOTE | 2018-06-28 13:15 | NUR ---
COWS 15 and CIWA 15 Pt has a flat affect, poor eye contact, anxious mood, is fidgety, large dilated pupils, goosebumps, chills, restlessness, sweating, tremors, nausea, c/o pins and needle sensation on her neck, shoulder and legs, generalized body aches, anxiety and agitation, and restless legs. Refuses prn meds at this time. Pt states she wants to go back to sleep. Safety measures in place. Will continue to monitor.
[2018-06-28] MEDS: KETOROLAC TROMETHAMINE 30 MG INJ IM PRN ×2 (15:57→22:15)
--- NOTE | 2018-06-28 15:57 | NUR ---
PRN Toradol 30 mg IM prn given for c/o lower back, abd pain 10/10 with facial grimacing, restlessness. Hot pack also given. Will monitor and reassess.
--- NOTE | 2018-06-28 16:00 | NUR ---
COWS 17 and CIWA 14 Pt is laying in bed covered with the blanket up to her neck. Pt is fidgety, has a flat affect, anxious mood, large dilated pupils, increase in body aches, c/o lower back, lower abd pain, goosebumps, chills, restlessness, sweating, tremors, nausea, pins and needle sensation on her neck, shoulder, and legs, generalized body aches, anxiety and agitation, and restless legs. Toradol 30 mg IM prn given for pain 08/17. Safety measures in place. Will continue to monitor.
--- NOTE | 2018-06-28 16:58 | NUR ---
Reassessment Pt reported toradol was effective in decreasing pain level now 5/10. Will continue to monitor.
[2018-06-28 17:01] VITALS: BP 108/60
--- NOTE | 2018-06-28 19:23 | NUR ---
END OF SHIFT Pt has remained isolative in room, sleeping intermittently most of the day. Attended 0 groups today; pt verbalized her abd and lower back pain was too unbearable due to starting her period and having endometriosis. Pt has been given toradol, and phenergan prns and were effective. Last COWS 17 and CIWA 15 @1600. Pt ate 25/50/100% of meals. Safety measures in place. Endorsement will be given to second shift supervisor.
--- NOTE | 2018-06-28 19:50 | NUR ---
Start of Shift Note Received 37 y/o female akash, admitted for medically supervised withdrawal from ETOH, benzos and opiates. Px was placed on 5 day Phenobarbital and 5 day Subutex taper started 06/25/2018. Last reported COWS 17 and CIWA 15. During the rounds at 1950, px is awake on bed in fowlers position, watching TV. Snacks and unfinished drinks noted on top of the bed side table and top of the shelves. Soiled clothes on the floor. Px appears anxious and depressed. Px is suspicious, with blunt affect and emotional volatility. Px stated that she has 10/10 anxiety, 8/10 body aches, pins/needles sensation on right leg and arms, flush feeling, stuffy nose, nausea and moderate bilateral hand tremors are also noted. Px is also asking for Clonidine. Bed on lowest position, side rails up 2x and call light within reach. Well continue to monitor.
[2018-06-28 20:00] VITALS: BP 148/83
--- NOTE | 2018-06-28 20:00 | NUR ---
COWS 15 and CIWA 16 During the rounds, px appears anxious and depressed. Px is suspicious, with blunt affect and emotional volatility. Px stated that her anxiety is 10/10, 8/10 LBP with uterine pain , pins/needles sensation on right leg and arms, flush feeling, stuffy nose, nausea and moderate bilateral hand tremors are also noted. [place]= 83. Well continue to monitor.
[2018-06-28] MEDS: CLONIDINE HCL 0.1 MG TABLET PO PRN (22:12)
[2018-06-28] MEDS: TRAZODONE 100 MG TABLET PO SCH (22:12)
--- NOTE | 2018-06-28 22:15 | NUR ---
PRN medications Px received Toradol 30 mg IM for pain of 8/10, Phenergan 25 mg PO for nausea and Clonidine 0.1 mg PO for increased anxiety. We'll continue to monitor.
--- NOTE | 2018-06-28 22:45 | NUR ---
COWS 14 reassessment Px still appears anxious and depressed. Px stated that her anxiety is still 10/10, her pain improved to 5/10 after administration of Toradol 30 mg IM, flush feeling, stuffy nose, and moderate bilateral hand tremors are also noted. [place]= 81. Well continue to monitor.
--- NOTE | 2018-06-28 22:45 | NUR ---
Reassessment of pain Px stated that her LBP and her uterine pain improved from 8/10 to 5/10.
--- NOTE | 2018-06-28 23:15 | NUR ---
Reassessment of nausea and anxiety Px stated that her nausea improved a bit and anxiety is now about 6-7/10.
--- NOTE | 2018-06-28 23:15 | NUR ---
CIWA 13 reassessment Px still appears anxious and depressed. Px stated that her anxiety is 6-7/10, pins/needles sensation on right leg and arms, nausea improved after taking Phenergan 25 mg PO and moderate bilateral hand tremors are also noted. Well continue to monitor.
[2018-06-29] VITALS: BP 138/82
--- NOTE | 2018-06-29 | NUR ---
COWS 14 and CIWA 13 Px is still awake and appears anxious and depressed but ready to sleep. Px stated that her anxiety is 6-7/10, pins/needles sensation on right leg and arms, nausea improved after taking Phenergan 25 mg PO and moderate bilateral hand tremors are also noted. Her pain improved to 5/10 after administration of Toradol 30 mg IM, flush feeling, stuffy nose. [place]= 82. Well continue to monitor.
[2018-06-29 04:00] VITALS: BP 131/80
--- NOTE | 2018-06-29 04:00 | NUR ---
COWS and CIWA deferred COWS and CIWA deferred due to the px is asleep, to assess if the px is awake per doctor's order. We'll continue to monitor.
[2018-06-29] MEDS: LEVOTHYROXINE SODIUM 50 MCG TABLET PO SCH (06:57)
--- NOTE | 2018-06-29 07:05 | NUR ---
End of Shift Note During the shift at 2215, px received Toradol 30 mg IM for pain of 8/10, Clonidine 0.1 mg for anxiety and Phenergan 25 mg PO for nausea. They were effective. Px oral intake 1200 ml, voided 2x, No BM. Px slept for 6 hours. At 0630, px is asleep on bed in fowlers position. Last COWS 14 and CIWA 13. Bed on lowest position, side rails up 2x and call light within reach. Px endorsed top AM shift nurse. Well continue to monitor.
--- NOTE | 2018-06-29 07:47 | NUR ---
Start of Shift Pt is a 37 y/o F admittd on 06/24/18 for medically supervised ETOH, benzo and opiate withdrawal. Today is the 5th day of a 5 day phenobarbital and subutex taper, and pt is tolerating well. Received pt laying in bed sleeping and has a disheveled appearance, flat affect, poor eye contact. Pt presents anxiety, agitation, enlarged pupils, c/o generalized body, lower back, lower abd pain, intermittent sweating, chills, restlessness, tremors, nausea, pins and needle sensation on her neck, shoulder, and legs, anxiety and agitation, and restless legs. Multipe drink bottles, snack wrappers and clothes scattered around the room. Last COWS 14 and CIWA 13; pt slept 6 hrs. Educated pt on today's plan of care and med regimen. Side rails upx2, bed in lowest position, and call light is within reach. Safety measures in place. Will continue to monitor.
[2018-06-29 08:00] VITALS: BP 99/61
[2018-06-29] MEDS ORDERED: BUPRENORPHINE HCL 2 MG TAB.SUBL SL SCH (09:00)
[2018-06-29] MEDS ORDERED: PHENOBARBITAL 60 MG TABLET PO SCH (09:00)
--- NOTE | 2018-06-29 09:30 | NUR ---
COWS 13 and CIWA 12 Received pt laying in bed sleeping and has a disheveled appearance, flat affect, poor eye contact. Pt presents anxiety, agitation, enlarged pupils, c/o generalized body, lower back, lower abd pain, intermittent sweating, chills, restlessness, tremors, nausea, pins and needle sensation on her neck, shoulder, and legs, anxiety and agitation, and restless legs. Scheduled meds given. Will continue to monitor.
[2018-06-29] MEDS: FOLIC ACID 1 MG TABLET PO SCH (09:47)
[2018-06-29] MEDS: MULTIVITAMINS,THERAPEUTIC TABLET PO SCH (09:47)
[2018-06-29] MEDS: FLUOXETINE HCL 20 MG CAPSULE PO SCH (09:47)
[2018-06-29] MEDS: TOPIRAMATE 25 MG TABLET PO SCH ×2 (09:47→21:12)
[2018-06-29] MEDS: PANTOPRAZOLE SODIUM 40 MG TABLET.DR PO SCH ×2 (09:48→17:07)
[2018-06-29] MEDS: THIAMINE HCL 100 MG TABLET PO SCH (09:48)
[2018-06-29] MEDS: KETOROLAC TROMETHAMINE 30 MG INJ IM PRN ×2 (09:49→19:46)
--- NOTE | 2018-06-29 09:49 | NUR ---
PRN Toradol 30 mg IM given for c/o lower back and abd pain 06/17 w/ pt exhibiting facial grimacing, guarding, restlessness and irritability. Will continue to monitor and reassess.
--- NOTE | 2018-06-29 10:49 | NUR ---
Reassessment Pt reports toradol was effective for decreasing intensity of pain to 5/10. Encouraged pt to use deep breathing exercises to promote relaxation. Will continue to monitor.
[2018-06-29 12:17] VITALS: BP 119/71
--- NOTE | 2018-06-29 12:30 | NUR ---
COWS 13 and CIWA 12 Pt has been isolative in room, presents anxiety, agitation, enlarged pupils, c/o generalized body, lower back, lower abd pain, intermittent sweating, chills, restlessness, tremors, nausea, pins and needle sensation on her neck, shoulder, and legs, anxiety and agitation, and restless legs. Toradol IM was given; will continue to monitor.
[2018-06-29 16:00] VITALS: BP 119/71
--- NOTE | 2018-06-29 16:30 | NUR ---
COWS 12 and CIWA 10 Pt has been isolative in room, currently laying in bed, has a depressive mood, states she has anxiety, agitation, presents enlarged pupils, c/o generalized body, lower back, lower abd pain, intermittent sweating, chills, restlessness, tremors, nausea, pins and needle sensation on her neck, shoulder, and legs, anxiety and agitation, and restless legs. Pt verbalized her pain in creased due to her starting her menstrual period. Hot pack given. Refuses prns at this time. Will continue to monitor.
--- NOTE | 2018-06-29 19:11 | NUR ---
END OF SHIFT Pt has been isolative in room throughout shift; pt is very withdrawn and isolative. Pt continued to present anhedonia, dysphoria, lower back and lower abd pain, anxiety, sweating. Last COWS 12 and CIWA 10. Toradol 30 mg IM PRN was given for lower back and lower abd pain; med was effective. Safety measures in place. Addendum: 06/29/18 at 1916 by LAKISHA SINGH RN Pt has completed the 5 day phenobarbital and subutex taper today and tolerated well. Pt is scheduled to be discharged tomorrow.
[2018-06-29] MEDS: PROMETHAZINE HCL 25 MG TABLET PO PRN (19:44)
[2018-06-29] MEDS: diphenhydrAMINE 50 MG CAPSULE PO PRN (19:44)
[2018-06-29] MEDS: DICYCLOMINE HCL 20 MG TABLET PO PRN (19:44)
[2018-06-29] MEDS: CLONIDINE HCL 0.1 MG TABLET PO PRN (19:44)
--- NOTE | 2018-06-29 19:44 | NUR ---
PRN medications Px received Bentyl 20 mg Po for stomach cramps, Clonidine 0.1 mg PO for anxiety, Benadryl 50 mg PO for insomnia, Phenergan 25 mg PO for nausea and Toradol 30 mg IM for pain of 8/10.
--- NOTE | 2018-06-29 19:50 | NUR ---
Start of Shift Note Received 37 y/o female px, admitted for medically supervised withdrawal from ETOH, benzos and opiates. Px completed 5 day Phenobarbital and 5 day Subutex taper started 06/25/2018.She is to be D/C tomorrow, 06/30/2018. Last reported COWS 12 and CIWA 10. During the rounds at 1950, px is awake on bed in fowlers position, watching TV. Unfinished snacks and drinks noted on top of the bed side table and top of the shelves. Soiled clothes on the floor. Px appears anxious and depressed. Px is suspicious with blunt affect. Px stated that she has 6/10 anxiety, LBP and uterine pain of 7/10, pins/needles sensation on right leg and arms, nausea and moderate bilateral hand tremors are also noted. Px is also asking for Clonidine. Bed on lowest position, side rails up 2x and call light within reach. Well continue to monitor.
[2018-06-29 20:00] VITALS: BP 116/63
--- NOTE | 2018-06-29 20:00 | NUR ---
COWS 11 and CIWA 12 Px appears anxious and depressed. Px stated that her anxiety is 6/10, pins/needles sensation on right leg and arms, has nausea and bilateral hand tremors are also noted. She has also LBP and uterine pain of 7/10, and stuffy nose. [place]= 71. Well continue to monitor.
--- NOTE | 2018-06-29 20:15 | NUR ---
Reassessment of pain Px stated that her pain improved from 8/10 to 4/10. Px was also provided with warm packs for low back and lower abdomen.
[2018-06-29] MEDS ORDERED: IBUP-1955 PO (20:31)
[2018-06-29] MEDS ORDERED: METH-406 PO (20:31)
[2018-06-29] MEDS ORDERED: DICY20TA28 PO (20:31)
[2018-06-29] MEDS ORDERED: HYDR-3895 PO (20:31)
--- NOTE | 2018-06-29 20:45 | NUR ---
Reassessment of anxiety, stomach cramps, and nausea Px is still awake at this time. Px stated that her stomach cramps improved and her anxiety improved to 3/10. Her nausea improved as well.
[2018-06-29] MEDS: TRAZODONE 100 MG TABLET PO SCH (21:12)
[2018-06-30] VITALS: BP 111/61
[2018-06-30 04:00] VITALS: BP 110/63
[2018-06-30] MEDS: LEVOTHYROXINE SODIUM 50 MCG TABLET PO SCH (06:54)
--- NOTE | 2018-06-30 07:05 | NUR ---
End of Shift Note During the shift at 194, Px received Bentyl 20 mg Po for stomach cramps, Clonidine 0.1 mg PO for anxiety, Benadryl 50 mg PO for insomnia, Phenergan 25 mg PO for nausea and Toradol 30 mg IM for pain of 06/17. They were effective. Px oral intake 1400 ml, voided 3x, 1x BM. Px slept for 8 hours. At 0630, px is asleep on bed in fowlers position. Last COWS 11 and CIWA 12. Bed on lowest position, side rails up 2x and call light within reach. Px endorsed top AM shift nurse. Well continue to monitor.
--- NOTE | 2018-06-30 07:30 | NUR ---
START OF SHIFT Endorse rcvd from ongoing nurse, client is is room, sound asleep, easy to arouse, RR 16, [id number]. Last CIWA 12/ 11 @ 1999. PRN Bentyl 20mg PO for abdominal spasms, Clonidine 0.1mg PO for anxiety, Benadryl 50mg PO for insomnia, Phenergan 25mg for nausea. Client slept 8 hrs. Seizure precautions. Bed in lowest/locked position.Side rails x 2 up/padded. call light within reach.
[2018-06-30 08:40] VITALS: BP 110/60
[2018-06-30] MEDS: FLUOXETINE HCL 20 MG CAPSULE PO SCH (09:54)
[2018-06-30] MEDS: MULTIVITAMINS,THERAPEUTIC TABLET PO SCH (09:54)
[2018-06-30] MEDS: FOLIC ACID 1 MG TABLET PO SCH (09:55)
[2018-06-30] MEDS: PANTOPRAZOLE SODIUM 40 MG TABLET.DR PO SCH (09:55)
[2018-06-30] MEDS: TOPIRAMATE 25 MG TABLET PO SCH (09:55)
[2018-06-30] MEDS: PROMETHAZINE HCL 25 MG TABLET PO PRN (09:55)
[2018-06-30] MEDS: THIAMINE HCL 100 MG TABLET PO SCH (09:55)
--- NOTE | 2018-06-30 09:55 | NUR ---
CIWA 8 / COWS 7 Client presents with anxiety, agitation, she reports nausa, no emesis. PRN Phenergan 25mg PO administered. Call light within reach.
--- NOTE | 2018-06-30 10:55 | NUR ---
Reassess PRN Phenergan 25mg, client reports relief from nausea.
[2018-06-30 12:19] VITALS: BP 155/100
--- NOTE | 2018-06-30 13:40 | NUR ---
Therapist prompted client to attend group therapy.
--- NOTE | 2018-06-30 14:48 | NUR ---
Discharge note Client left the unit in stable condition, no withdrawal symptoms noted. all belongings were returned to client. Client teaching was administered and she verbalized understanding. Client will be transferred home via private car.
== END 2018-06-30 13:48 | disposition other institution (70) | DRG 895 ==
LOC: SRC 18:15
PROVIDERS: ADMIT Family Medicine Addiction Medicine; ATTEND Family Medicine Addiction Medicine
PROC: HZ2ZZZZ Detoxification Services for Substance Abuse Treatment (ICD-10-PCS; principal; 2018-06-24)
PROC: HZ41ZZZ Group Counseling for Substance Abuse Treatment, Behavioral (ICD-10-PCS; 2018-06-25)
DX: F11.23 Opioid dependence with withdrawal (principal); F10.230 Alcohol dependence with withdrawal, uncomplicated; Y90.0 Blood alcohol level of less than 20 mg/100 ml; E66.9 Obesity, unspecified; Z68.38 Body mass index [BMI] 38.0-38.9, adult; N80.9 Endometriosis, unspecified; Z88.2 Allergy status to sulfonamides; Z91.09 Other allergy status, other than to drugs and biological substances; Z81.8 Family history of other mental and behavioral disorders; Z81.1 Family history of alcohol abuse and dependence; F32.9 Major depressive disorder, single episode, unspecified; F41.0 Panic disorder [episodic paroxysmal anxiety]; F17.210 Nicotine dependence, cigarettes, uncomplicated; F13.239 Sedative, hypnotic or anxiolytic dependence with withdrawal, unspecified; E05.90 Thyrotoxicosis, unspecified without thyrotoxic crisis or storm; G62.9 Polyneuropathy, unspecified; G43.909 Migraine, unspecified, not intractable, without status migrainosus; J45.909 Unspecified asthma, uncomplicated; G40.909 Epilepsy, unspecified, not intractable, without status epilepticus; K21.9 Gastro-esophageal reflux disease without esophagitis
CPT/HCPCS: 36415; 70030-TC; 80307; 80346; 83690; 83735; 84443; 84703; 85025; 86580; 86592; 86705; 86803; 87340; 87806; 94664; A4663; G0480; J1885; J8499; Q0163; Q0169